=== PATIENT | female | born 1960 | race Two or more races ===

== ENCOUNTER 2024-05-16 00:36 | Emergency (ER) | payer BC ==
[~2024-05-16] VITALS: Ht 149.9 cm; Wt 70.3 kg
[2024-05-16] MEDS ORDERED: LETR2.5T PO (01:55)
[2024-05-16] MEDS ORDERED: PROP10TA10 PO (01:55)
[2024-05-16] MEDS ORDERED: BENA1TAB18 PO (01:55)
[2024-05-16 02:59] VITALS: BP 145/89; TEMP 97.9; O2SAT 99
== END 2024-05-16 03:01 | disposition home or self-care (01) ==
LOC: ER 00:36
DX: I10 Essential (primary) hypertension (principal); H93.A9 Pulsatile tinnitus, unspecified ear; F41.9 Anxiety disorder, unspecified; Z79.811 Long term (current) use of aromatase inhibitors; Z90.49 Acquired absence of other specified parts of digestive tract
CPT/HCPCS: A4606; A4663